=== PATIENT | male | born 1975 | race Asian ===

== ENCOUNTER 2023-09-13 08:22 | Day surgery (SDC) | payer OTHER ==
[~2023-09-13] VITALS: Ht 175.3 cm; Wt 97.1 kg
[2023-09-13] MEDS: fentaNYL citrate 0.05 MG/ML VIAL ONE (11:12)
== END 2023-09-13 12:02 | disposition home or self-care (01) ==
LOC: MDS 08:22 → MMU 08:26 → MDS 12:02
PROVIDERS: ATTEND Internal Medicine Gastroenterology
DX: Z12.11 Encounter for screening for malignant neoplasm of colon (principal); K63.5 Polyp of colon; I10 Essential (primary) hypertension; K21.9 Gastro-esophageal reflux disease without esophagitis; E78.00 Pure hypercholesterolemia, unspecified; E03.9 Hypothyroidism, unspecified; Z79.899 Other long term (current) drug therapy; Z98.890 Other specified postprocedural states
CPT/HCPCS: 45385; J3010